=== PATIENT | male | born 1980 ===

== ENCOUNTER 2017-07-14 19:23 | Emergency (ER) | payer BC ==
[2017-07-14 19:40] VITALS: BP 104/54; PULSE 89; RESP 18; TEMP 98.2; O2SAT 100
--- NOTE | 2017-07-14 20:26 | ED PDOC ---
HPI: Skin/Bite Injury Time Seen by Provider: 07/14/17 19:59 Chief Complaint (Nursing): Abnormal Skin Integrity Chief Complaint (Provider): Rash History Per: Patient History/Exam Limitations: no limitations Onset/Duration Of Symptoms: Days (x3) Current Symptoms Are (Timing): Still Present Quality Of Symptoms: Painful, Itching Additional Complaint(s): Justin is a 37 y/o male who presents to the ED complaining of rash to his torso, for 3 days. States that he always gets these symptoms when in the sun for an extended time, and he just returned from a cruise in the [facility]. No additional complaints at this time. PMD: [place] Past Medical History Reviewed: Historical Data, Nursing Documentation, Vital Signs Vital Signs: Last Vital Signs Temp 98.2 F 07/14/17 19:34 Pulse 89 07/14/17 19:34 Resp 18 07/14/17 19:34 BP 104/54 L 07/14/17 19:34 Pulse Ox 100 07/14/17 20:29 - Family History Family History: States: No Known Family Hx - Home Medications Home Medications: Ambulatory Orders Medication Instructions Recorded Naproxen [Naprosyn] 500 mg PO BID #20 tablet 08/29/16 oxyCODONE/Acetaminophen [Percocet 1 ea PO Q6 #10 tab 08/29/16 5/325 mg Tab] predniSONE [predniSONE Tab] 20 mg PO DAILY #12 tab 07/14/17 - Allergies Allergies/Adverse Reactions: Allergies Allergy/AdvReac Type Severity Reaction Status Date / Time No Known Allergies Allergy Verified 07/14/17 19:40 Review of Systems ROS Statement: Except As Marked, All Systems Reviewed And Found Negative Constitutional: Negative for: Fever Skin: Positive for: Rash Physical Exam - Reviewed Nursing Documentation Reviewed: Yes Vital Signs Reviewed: Yes - Physical Exam Appears: Positive for: Well, Non-toxic, No Acute Distress Head Exam: Positive for: ATRAUMATIC, NORMAL INSPECTION, NORMOCEPHALIC Skin: Positive for: Warm, Dry, Rash (Erythematous rash with vesicles around the entire torso) Eye Exam: Positive for: EOMI, Normal appearance, PERRL ENT: Positive for: Normal ENT Inspection Neck: Positive for: Normal Respiratory: Negative for: Respiratory Distress Neurologic/Psych: Positive for: Alert, Oriented - ECG O2 Sat by Pulse Oximetry: 100 (RA) Pulse Ox Interpretation: Normal Medical Decision Making Medical Decision Making: Time: 20:29 Clinical Impression: Dermatitis Upon provider evaluation patient is medically stable, and requires no further treatment in the ED at this time. Patient will be discharged home with Rx for prednisone. Counseling was provided and all questions were answered regarding diagnosis and need for follow up with PMD. There is agreement to discharge plan. Return if symptoms persist or worsen. Scribe Attestation: Documented by Ruth Genao, acting as a scribe for Radha Todd PA-C Provider Scribe Attestation: All medical record entries made by the Scribe were at my direction and personally dictated by me. I have reviewed the chart and agree that the record accurately reflects my personal performance of the history, physical exam, medical decision making, and the department course for this patient. I have also personally directed, reviewed, and agree with the discharge instructions and disposition. Disposition - Clinical Impression Clinical Impression: Dermatitis - Patient ED Disposition Is Patient to be Admitted: No Counseled Patient/Family Regarding: Diagnosis, Need For Followup, Rx Given - Disposition Disposition: Routine/Home Disposition Time: 20:29 Condition: STABLE Prescriptions: predniSONE [predniSONE Tab] 20 mg PO DAILY #12 tab Instructions: Dermatitis (ED) Forms: ARI ([place])
== END 2017-07-14 21:06 | disposition home or self-care (01) ==
LOC: H.ER 19:23
DX: L30.9 Dermatitis, unspecified (principal)
CPT/HCPCS: 96372; 99282; J2930